=== PATIENT | female | born 1965 | race Caucasian/White ===

== ENCOUNTER 2016-09-07 19:48 | Emergency (ER) | payer OTHER ==
[~2016-09-07] VITALS: Ht 149.9 cm; Wt 63.0 kg
[~2016-09-07 19:48] MED LIST: CLON0.2T PO; OXYC10TA8 PO; PROM25TA14 PO
[2016-09-07 19:50] VITALS: BP 136/74; PULSE 55; RESP 18; O2SAT 97
--- NOTE | 2016-09-07 21:30 | ED.REPORT ---
HPI-Extremity Problem Lower Date of Service Sep 07, 2016 ED Provider: Dr. Deshawn Cabello MD A 51 year old female with a history of IV drug abuse, hepatitis C, Graves disease and COPD presents to the ED complaining of hematuria that began this morning. Associated symptoms include dysuria and flank pain. She reports similar symptoms during her previous bladder infection. Patient denies any other medical complaints at this time. Nursing Notes Stated Complaint: BLOOD IN URINE Chief Complaint: Female Abdominal Pain Nursing Notes Reviewed: Yes Allergies: Coded Allergies: prochlorperazine (Verified Allergy, Mild, hives, 09/07/16) Scheduled Clonidine (Clonidine) 0.2 Mg Tablet 0.2 MG PO BID Scheduled PRN Promethazine (Promethazine) 25 Mg Tablet 25-50 MG PO Q6H PRN PRN For Nausea oxyCODONE (oxyCODONE) 10 Mg Tablet 10-20 MG PO Q4H PRN PRN For Pain General Time Seen by MD: 21:58 Chief Complaint Other (Hematuria ) Hx Obtained From: Patient Arrived By: Walk-in Onset Occurred: 9 - 12 hours ago Symptom Duration: Since onset Associated with: Reports: Hematuria Additional Notes: Dysuria Back pain Pertinent Negative: Pt denies other symptoms Recent Healthcare: No recent doctor visit, No recent hospitalization Past Medical History Past Medical History Notes: PCP: Dr. Ignacio Past Medical History Hx of IV drug use, on methadone Hx of C diff colitis graves disease COPD hepatitis C Past Surgical History Partial lung removal - trauma Reports: Appendectomy, Hysterectomy Smoking History Unknown if Ever Smoker Social History Recently moved here from [place], Lives in [place] Drug Use: In recovery Other Social History: From out of town Ambulatory Status Independent Review of Systems Constitutional: Denies: Chills, Fever Musculoskeletal: Reports: Back pain Complete sys rev & neg: except as marked. Respiratory: Denies: Shortness of breath GI: Denies: Nausea, Vomiting Female: Reports: Dysuria, Hematuria Physical Exam Initial Vital Signs Vital Signs (First) Date Time Temp Pulse Resp B/P Pulse Ox O2 Delivery O2 Flow Rate FiO2 09/07/16 19:50 36.4 55 18 136/74 97 Room Air Initial VS: Reviewed Head / Eyes: Atraumatic, Normocephalic, PERRL Neck: Supple, Non-tender, Full range of motion Upper Extremities: Vascular intact, Neuro intact, No swelling, No tenderness Neurologic: Alert, Oriented, Nonfocal Psychiatric: Mood/affect normal, Behavior normal, Normal thought content Lower Extremity / Pelvis / MS: Atraumatic, Neurologic intact, Vascular intact Ankle / Foot: Atraumatic, Neurologic intact, Vascular intact General/Constitutional: Awake, Alert, No acute distress Respiratory / Chest: Atraumatic, No respiratory distress Skin: Atraumatic, Color NL, Warm, Dry Abdomen: Atraumatic, Soft Tenderness/Guarding/Rebound: Positive: Tender suprapubic Back: Atraumatic, No CVA tenderness Interpretation & Diagnostics Lab Results Interpretation Test 09/07/16 21:12 Urine Color Yellow (YELLOW) Urine Appearance Hazy (CLEAR,HAZY) Urine pH 6.0 (5.0-8.0) Urine Specific [place] 1.015 (1.003-1.035) Urine Protein Tracemg/dL (NEG,TRACE) Urine Glucose (UA) Negativemg/dL (NEGATIVE) Urine Ketones Negativemg/dL (NEGATIVE) Urine Occult Blood Large (NEGATIVE) Urine Nitrite Negative (NEGATIVE) Urine Bilirubin Negative (NEGATIVE) Urine Urobilinogen Normalmg/dL (NORMAL) Urine Leukocyte Esterase Moderate (NEGATIVE) Urine RBC Packed/hpf (0-2) Urine WBC Packed/hpf (0-5) Urine Epithelial Cells Few/hpf (NONE-MOD) Urine Crystals None seen (NONE SEEN) Urine Bacteria Moderate/hpf (NONE-FEW) Urine Hyaline Casts None/lpf (NONE) Urine Granular Casts None seen (NONE SEEN) Urine Waxy Casts None seen (NONE SEEN) Urine Red Blood Cell Casts None seen (NONE SEEN) Urine White Blood Cell Casts None seen (NONE SEEN) Urine Mucus None seen (None Seen) Urine Trichomonas None seen (NONE SEEN) Urine Yeast None (NONE SEEN) Urine Culture Reflexed Indicated Re-Eval/Medical Decision Re-Evaluation/Progress : Time of Eval: 22:28 Patient Status: Condition improved Re-Evaluation/Progress Note: Patient is informed of her lab results and diagnosis. She agrees with plan to discharge with antibiotics. Counseled Regarding: Diagnosis, Lab results, Need for follow-up, When/why to return to ED Discharge & Departure Impression: Primary Impression: Acute hemorrhagic cystitis Disposition: Home Discharge Condition All VS Reviewed: Yes Additional Instructions: Thank you for trusting us with your care this evening. Your emergency department evaluation today included interview, examination and lab work. Your lab work today revealed a bladder infection and i believe this is the likely cause of your symptoms. Please take macro BID twice daily for 5 days. May use pyridium as needed for painful urination.. Schedule a follow-up appointment with your primary doctor in the next week for a recheck. You should return to the ED immediately if you develop vomiting, fever, chills or any other concerning signs or symptoms. Referrals: Yohannes Ignacio MD (PCP) Scribe Attestation Portions of this note were transcribed by Yariel Horne. I, Dr. Cabello personally performed the history, physical exam and medical decision-making; I reviewed and confirmed the accuracy of the information in the transcribed note. Signed by: Raegan Marquez, 09/07/16 [id number]. copies to: Yohannes Ignacio MD, Howard L MD Sep 07, 2016 21:30 Deshawn Cabello MD Sep 07, 2016 21:59 YARIEL HORNE Sep 07, 2016 22:05
[2016-09-07 21:40] LABS: APPEARANCE,URINE HAZY (CLEAR,HAZY); COLOR,URINE YELLOW (YELLOW); OCCULT BLOOD,URINE LARGE (NEGATIVE); UROBILINOGEN,URINE NORMAL (NORMAL)
[2016-09-07] MEDS ORDERED: _Nitrofurantoin Macrocrystal 100 mg Capsule PO SCH (22:05)
[2016-09-07] MEDS ORDERED: Phenazopyridine 97.5 mg Tablet PO ONE (22:05)
[2016-09-07 22:24] VITALS: BP 130/82; PULSE 51; RESP 16; O2SAT 96
== END 2016-09-07 22:40 | disposition home or self-care (01) ==
LOC: SED 19:48
DX: N30.91 Cystitis, unspecified with hematuria (principal); B96.20 Unspecified Escherichia coli [E. coli] as the cause of diseases classified elsewhere; F11.21 Opioid dependence, in remission; J44.9 Chronic obstructive pulmonary disease, unspecified; E05.00 Thyrotoxicosis with diffuse goiter without thyrotoxic crisis or storm; I10 Essential (primary) hypertension; E78.5 Hyperlipidemia, unspecified; Z86.19 Personal history of other infectious and parasitic diseases; Z88.8 Allergy status to other drugs, medicaments and biological substances

== ENCOUNTER 2017-01-22 11:27 | Emergency (ER) | payer OTHER ==
[~2017-01-22] VITALS: Ht 149.9 cm; Wt 65.9 kg
[2017-01-22 11:31] VITALS: BP 139/73; PULSE 76; RESP 22; O2SAT 98
--- NOTE | 2017-01-22 11:36 | ED.REPORT ---
HPI-Dyspnea / Wheezing Date of Service Jan 22, 2017 ED Provider: Chao Newton MD The pt is a 51 y/o female w/ a hx of COPD presenting to the ED complaining of SOB onset 1 week ago. She reports a productive cough w/ yellow mucus, a fever, wheezing, and nasal congestion. Denies nausea, vomiting, or rhinorrhea. The pt also had pneumonia last year. Nursing Notes Stated Complaint: POSS PNEUMONIA Chief Complaint: SOB Nursing Notes Reviewed: Yes Allergies: Coded Allergies: prochlorperazine (Verified Allergy, Mild, hives, 09/07/16) Scheduled Clonidine (Clonidine) 0.2 Mg Tablet 0.2 MG PO BID Levofloxacin (Levaquin) 750 Mg Tablet 750 MG PO DAILY Prednisone (PredniSONE) 20 Mg Tablet 40 MG PO DAILY Scheduled PRN Promethazine (Promethazine) 25 Mg Tablet 25-50 MG PO Q6H PRN PRN For Nausea oxyCODONE (oxyCODONE) 10 Mg Tablet 10-20 MG PO Q4H PRN PRN For Pain General Time Seen by MD: 11:34 Chief Complaint Shortness of breath Hx Obtained From: Patient Arrived By: Walk-in Sudden in Onset?: Yes Onset Occurred: 1 week ago Symptom Duration: Since onset Recent Healthcare: No recent hospitalization, Recent doctor visit Similar Sx Previous: Yes Past Medical History Past Medical History Notes: PCP: Dr. Ignacio Past Medical History Hx of IV drug use, on methadone Hx of C diff colitis graves disease COPD hepatitis C Past Surgical History Partial lung removal - trauma Reports: Appendectomy, Hysterectomy Smoking History Former Smoker Social History Recently moved here from [place], Lives in [place] Drug Use: In recovery Other Social History: From out of town Ambulatory Status Independent Review of Systems Denies rhinorrhea Constitutional: Reports: Fever Ears / Nose / Throat: Reports: Nasal congestion Respiratory: Reports: Prod cough, yellow, Shortness of breath, Wheezing Complete sys rev & neg: except as marked. GI: Denies: Nausea, Vomiting Physical Exam Initial Vital Signs Vital Signs (First) Date Time Temp Pulse Resp B/P Pulse Ox O2 Delivery O2 Flow Rate FiO2 01/22/17 11:31 37.1 76 22 139/73 98 Room Air Initial VS: Reviewed Head / Eyes: Atraumatic, Normocephalic, PERRL ENT: Mucous membranes moist, Conjunctiva normal, No scleral icterus Abdomen / GI: Soft, Non-tender Extremities: Vascular intact, Neuro intact, No swelling, No tenderness Skin: Warm, Dry, No cyanosis Neurologic: Alert, Oriented, Nonfocal Psychiatric: Mood/affect normal, Behavior normal, Normal thought content General/Constitutional: Awake, Alert Neck: Atraumatic, Supple, Full range of motion Respiratory / Chest: No chest tenderness Crackles in R lung Cardiovascular: Heart rate NL, Regular rhythm, Heart sounds NL Interpretation & Diagnostics X-Ray Chest Interpretation Chest Xray Interpretation: IMPRESSION: 1. Ill-defined right midlung pulmonary opacity may represent early infection. 2. Trace right pleural effusion. 3. Left midlung postoperative change. 4. Possible emphysema. Dictated by: Loyd Zuniga M.D. on 01/22/2017 at 12:11 Approved by: Loyd Zuniga M.D. on 01/22/2017 at 12:13 View: Portable, 1 view Interpretation / Wet Read by: Interpret - Radiologist Re-Eval/Medical Decision Med Decision/Clinical Course 51-year-old female history COPD presenting with worsening cough. Her vital signs are stable. Her oxygenation is normal. Chest x-ray shows a questionable developing right mid lung pneumonia. Her lungs are clear other than mild crackles right side. The patient is hemodynamically stable and her respirations are nonlabored and her oxygen is normal. Patient is comfortable with no labs at this time. She will be started on Levaquin and follow up with her primary doctor in 2 days for reevaluation. Return precautions given. Source of Hx: Old records Counseled Regarding: Diagnosis, Lab results, Need for follow-up, When/why to return to ED Discharge & Departure Impression: Primary Impression: Pneumonia Pneumonia type: due to unspecified organism Laterality: unspecified laterality Lung location: unspecified part of lung Qualified Code: J18.9 - Pneumonia, unspecified organism Disposition: Home Discharge Condition All VS Reviewed: Yes Condition: Stable Additional Instructions: Thank for you entrusting us with your care today. You were diagnosed with pneumonia. Please take the Levaquin and steroids as scheduled and follow up with your primary care provider tomorrow for a re-evaluation. Please return to the emergency department if you develop a fever, experience any difficulty breathing, nausea, vomiting, chest pain or develop any new or worsening symptoms. I hope you feel better soon. Referrals: Yohannes Ignacio MD (PCP) Scribe Attestation Portions of this note were transcribed by Nishant Rosenbaum. I, Dr. Newton personally performed the history, physical exam and medical decision-making; I reviewed and confirmed the accuracy of the information in the transcribed note. copies to: Yohannes Ignacio MD, Ben M MD Jan 22, 2017 11:36 Nishant Rosenbaum Jan 22, 2017 12:24
--- NOTE | 2017-01-22 12:14 | DRSVH ---
PROCEDURE: X-RAY CHEST ONE VIEW, PORTABLE ([id number]) INDICATIONS: cough TECHNIQUE: One view of the chest was acquired. COMPARISON: None. FINDINGS: Surgical changes and devices: None. Lungs and pleura: Trace right pleural effusion. No pneumothorax. Left midlung postoperative change. Ill-defined right midlung pulmonary opacity. Hyperinflation may represent emphysema. Mediastinum: Mediastinal contours appear normal. Heart size is normal. Bones and chest wall: No suspicious bony lesions. Overlying soft tissues appear unremarkable. IMPRESSION: 1. Ill-defined right midlung pulmonary opacity may represent early infection. 2. Trace right pleural effusion. 3. Left midlung postoperative change. 4. Possible emphysema. Dictated by: Loyd Zuniga M.D. on 01/22/2017 at 12:11 Approved by: Loyd Zuniga M.D. on 01/22/2017 at 12:13
[2017-01-22] MEDS ORDERED: PRE20 PO (12:18)
[2017-01-22] MEDS ORDERED: LEVO750T9 PO (12:18)
== END 2017-01-22 12:31 | disposition home or self-care (01) ==
LOC: SED 11:27
DX: J18.9 Pneumonia, unspecified organism (principal); J44.9 Chronic obstructive pulmonary disease, unspecified; Z87.01 Personal history of pneumonia (recurrent); Z90.2 Acquired absence of lung [part of]; Z87.891 Personal history of nicotine dependence; Z88.8 Allergy status to other drugs, medicaments and biological substances